=== PATIENT | male | born 1980 | race African-American/Black ===

== ENCOUNTER 2016-10-27 17:44 | Emergency (ER) | payer MEDICAID, OTHER ==
[~2016-10-27] VITALS: Ht 180.3 cm; Wt 77.1 kg
[2016-10-27 18:14] VITALS: BP 126/70
[2016-10-27] MEDS ORDERED: IBUPROFEN 600 MG TAB PO ONE (19:30)
== END 2016-10-27 20:24 | disposition home or self-care (01) ==
LOC: ER 17:49
DX: S83.91XA Sprain of unspecified site of right knee, initial encounter (principal); F17.210 Nicotine dependence, cigarettes, uncomplicated; X58.XXXA Exposure to other specified factors, initial encounter; Y93.89 Activity, other specified; Y99.8 Other external cause status; Y92.89 Other specified places as the place of occurrence of the external cause
CPT/HCPCS: 29505; 73560